=== PATIENT | female | born 2000 | race Caucasian/White ===

== ENCOUNTER 2025-05-16 22:19 | Emergency (ER) | payer BC | END 2025-05-16 23:30 | disposition home or self-care (01) | LOC: JD.ED 22:19 | DX: S61.011A Laceration without foreign body of right thumb without damage to nail, initial encounter (principal); S61.213A Laceration without foreign body of left middle finger without damage to nail, initial encounter; Z88.5 Allergy status to narcotic agent; W26.8XXA Contact with other sharp object(s), not elsewhere classified, initial encounter | CPT/HCPCS: 12002; 99282; J2003 ==